=== PATIENT | male | born 1950 | race Caucasian/White ===

== ENCOUNTER 2024-01-16 12:48 | Outpatient (CLI) | payer OTHER | END 2024-01-16 12:49 | disposition home or self-care (01) | LOC: BICCT 12:48 | PROVIDERS: ATTEND Otolaryngology | DX: H72.92 Unspecified perforation of tympanic membrane, left ear (principal); H92.12 Otorrhea, left ear; H74.8X2 Other specified disorders of left middle ear and mastoid; R93.89 Abnormal findings on diagnostic imaging of other specified body structures | CPT/HCPCS: 70480 ==